=== PATIENT | female | born 1980 | race Caucasian/White ===

== ENCOUNTER 2016-12-31 17:06 | Outpatient (CLI) | payer BC, OTHER ==
--- NOTE | 2017-01-01 01:15 | Ultrasound Report ---
EXAM: ABDOMEN ULTRASOUND LIMITED, RUQ EXAM DATE: 12/31/2016 05:46 PM. CLINICAL HISTORY: LIVER FUNCTION TEST, ABNORMAL. COMPARISON: None. TECHNIQUE: Real-time scanning was performed with static images obtained. FINDINGS: Liver: Moderate diffuse fatty infiltration of the liver with diffuse hyperechogenicity. 17.2 cm. Main portal vein flow: Hepatopetal. Gallbladder: One large shadowing mobile gallstone, measures 2.4 cm. No gallbladder wall thickening. T he gallbladder wall measures 2.3 mm. Negative sonographic Harrington's sign. No pericholecystic fluid. Biliary System: The common duct measures 2.6 mm. No intrahepatic or extrahepatic ductal dilatation. Other: Right kidney measures 10.47 m in length. No hydronephrosis. IMPRESSION: 1. Cholelithiasis without evidence for acute cholecystitis. No bile duct dilatation. 2. Moderate fatty liver. [facility] Referring Provider Line: [phone] SITE ID: [id number]
== END 2016-12-31 17:07 | disposition home or self-care (01) ==
LOC: DI 17:06
PROVIDERS: ATTEND Family Medicine
DX: K80.20 Calculus of gallbladder without cholecystitis without obstruction (principal); K76.0 Fatty (change of) liver, not elsewhere classified
CPT/HCPCS: 76705

== ENCOUNTER 2017-01-11 08:21 | Outpatient (CLI) | payer BC | END 2017-01-11 08:22 | disposition home or self-care (01) | LOC: DI 08:21 | PROVIDERS: ATTEND Family Medicine | DX: Z53.9 Procedure and treatment not carried out, unspecified reason (principal) ==

== ENCOUNTER 2017-11-21 08:00 | Outpatient (CLI) | payer BC | END 2017-11-21 08:01 | disposition home or self-care (01) | LOC: LAB.WCP 08:00 | PROVIDERS: ATTEND Family Medicine | DX: L03.115 Cellulitis of right lower limb (principal) | CPT/HCPCS: 87070; 87205 ==

== ENCOUNTER 2018-01-01 12:07 | Emergency (ER) | payer BC ==
--- NOTE | 2018-01-01 13:02 | ED Physician Documentation ---
PD HPI UPPER EXT INJURY - Stated complaint Stated Complaint: R ARM INJ - Chief complaint Chief Complaint: Ext Problem - History obtained from History obtained from: Patient - History of Present Illness Location: Right, Forearm, Wrist Type of injury: Twist (she pulled heavy object yesterday and felt pain at forearm and wrist.) Timing - onset: Yesterday (has worse pain today and forearm feels painful with movement.) Timing - duration: Days (1) Timing - details: Abrupt onset, Still present Improved by: Rest Worsened by: Moving, Palpating Associated symptoms: No: Weakness, Numbness, Tingling, Discolored Similar symptoms before: Has not had sx before Review of Systems Constitutional: denies: Fever, Chills Nose: denies: Rhinorrhea / runny nose, Congestion Throat: denies: Sore throat Respiratory: denies: Cough GI: denies: Vomiting, Diarrhea Skin: denies: Rash, Lesions, Abrasion (s), Laceration (s) Musculoskeletal: reports: Extremity pain Neurologic: denies: Focal weakness, Numbness PD PAST MEDICAL HISTORY - Past Medical History Past Medical History: No - Past Surgical History Past Surgical History: No - Present Medications Home Medications: Ambulatory Orders Medication Instructions Recorded Confirmed HYDROcod/ACETAM 5/325 [[place] 5/325] 1 tab PO Q6H PRN #15 tablet 01/01/18 - Allergies Allergies/Adverse Reactions: Allergies Allergy/AdvReac Type Severity Reaction Status Date / Time No Known Drug Allergies Allergy Verified 01/01/18 12:21 - Social History Does the pt smoke?: No Smoking Status: Never smoker Does the pt drink ETOH?: Yes ETOH Use: Beer Does the pt have substance abuse?: No - Immunizations Immunizations are current?: Yes - POLST Patient has POLST: No PD ED PE NORMAL - Vitals Vital signs reviewed: Yes - General General: Alert and oriented X 3, No acute distress, Well developed/nourished - Derm Derm: Normal color, Warm and dry, No rash - Extremities Extremities: Other (right distal forearm and wrist are tender to palpate. Do not feel tight per se. Good pulses, color and cap refill. Normal sensation. No edema in hand. Not tender at elbow nor at snuffbox. ) Results - Vitals Vitals: Oxygen O2 Source Room air - Rads (name of study) forearm right Radiology: Prelim report reviewed (no fractures) PD MEDICAL DECISION MAKING - ED course Complexity details: reviewed results, considered differential (muscle strain, consider fx but xray is okay. She has pain with ROM so consider some muscular injury with tightness, but does not have other signs/sxs to correlate with compartment syndrome, but I discussed with patient watching for the "Ps" of that. She has wrist splint at home, so did not need one here. ), d/w patient - Sepsis Event Vital Signs: Oxygen O2 Source Room air Departure - Departure Disposition: Home, Self Care Clinical Impression: Sprain of right forearm Qualifiers: Encounter type: initial encounter Qualified Code(s): S63.501A - Unspecified sprain of right wrist, initial encounter Condition: Stable Record reviewed to determine appropriate education?: Yes Instructions: ED Sprain Wrist Follow-Up: Stefan Boone DO [Primary Care Provider] - Prescriptions: HYDROcod/ACETAM 5/325 [[place] 5/325] 1 tab PO Q6H PRN #15 tablet PRN Reason: Pain Comments: Use her wrist splint at home for the next several days to week. Progress use of the arm as able. Do gentle range of motion periodically to prevent stiffness. Use some ibuprofen or naproxen 2-3 times daily for the next 5-7 days. Add Tylenol or hydrocodone if needed for pain. Recheck if not improving well over the next several days and if not fully better over the next 1-2 weeks. Discharge Date/Time: 01/01/18 13:53
--- NOTE | 2018-01-01 13:20 | XRAY Preliminary Report ---
Exam: XR FOREARM RT IMPRESSION: Minimal regional soft tissue swelling. No underlying bony abnormality. No retained foreig n body. [facility] SITE ID: [id number]
--- NOTE | 2018-01-01 13:38 | XRAY Report ---
EXAM: RIGHT FOREARM RADIOGRAPHY EXAM DATE: 01/01/2018 01:06 PM. CLINICAL HISTORY: Right forearm injury. COMPARISON: None. TECHNIQUE: 2 views. FINDINGS: Bones: No fracture or bone lesions. Joints: No effusions or subluxations in the visualized wrist or elbow joints. Soft Tissues: Minimal soft tissue swelling. No retained foreign body. IMPRESSION: Minimal regional soft tissue swelling. No underlying bony abnormality. No retained foreig n body. [facility] Referring Provider Line: [phone] SITE ID: [id number]
[2018-01-01 13:54] VITALS: BP 132/94
== END 2018-01-01 13:53 | disposition home or self-care (01) ==
LOC: ED 12:07
DX: S63.501A Unspecified sprain of right wrist, initial encounter (principal); X50.9XXA Other and unspecified overexertion or strenuous movements or postures, initial encounter
CPT/HCPCS: 99283

== ENCOUNTER 2018-05-09 22:50 | Outpatient (CLI) | payer BC ==
[2018-05-09 12:51] LABS: BASOPHILS # (AUTO) 0.1 10^3/uL (0.0-0.1); BASOPHILS % (AUTO) 0.7 %; EOSINOPHILS # (AUTO) 0.2 10^3/uL (0.0-0.7); EOSINOPHILS % (AUTO) 2.5 %; HGB - HEMOGLOBIN 14.8 g/dL (12.0-16.0); LYMPHOCYTES # (AUTO) 3.6 10^3/uL (1.5-3.5); LYMPHOCYTES % (AUTO) 39.2 %; MEAN CORPUSCULAR HEMOGLOBIN 31.3 pg (27.0-31.0); MEAN CORPUSCULAR HGB CONC 34.6 g/dL (32.0-36.0); MEAN CORPUSCULAR VOLUME 90.3 fL (81.0-99.0); MEAN PLATELET VOLUME 9.9 fL (7.9-10.8); MONOCYTES # (AUTO) 0.4 10^3/uL (0.0-1.0); MONOCYTES % (AUTO) 4.6 %; NEUTROPHILS # (AUTO) 4.9 10^3/uL (1.5-6.6); PLT - PLATELET COUNT 224 10^3/uL (130-450); RED BLOOD COUNT 4.72 10^6/uL (4.20-5.40); WHITE BLOOD COUNT 9.3 x10^3/uL (4.8-10.8)
[2018-05-09 13:00] LABS: HCG,QUALITATIVE BLOOD NEGATIVE
[2018-05-09 13:24] LABS: ALBUMIN 4.6 g/dL (3.2-5.5); ALBUMIN/GLOBULIN RATIO 1.5 (1.0-2.2); ALKALINE PHOSPHATASE 62 IU/L (42-121); ALT ALANINE AMINOTRANSFERASE 44 IU/L (10-60); AST ASPARTATE AMINOTRANSFERASE 38 IU/L (10-42); BILIRUBIN,TOTAL 0.9 mg/dL (0.2-1.0); BUN - BLOOD UREA NITROGEN 12 mg/dL (6-20); CHOL/HDL RATIO 3.7 (<4.4); CHOLESTEROL 238 mg/dL; CREATININE 0.6 mg/dL (0.4-1.0); GFR - MDRD 111 (>89); HDL CHOLESTEROL 65 mg/dL; LDL CHOLESTEROL,CALCULATED 155 mg/dL; LDL/HDL RATIO 2.4 (<4.4); TOTAL PROTEIN 7.7 g/dL (6.7-8.2); VLDL CHOLESTEROL 18 mg/dL
[2018-05-09 13:31] LABS: HB2 TOTAL 15.6 g/dL; HEMOGLOBIN A1C 0.51 g/dL; HEMOGLOBIN A1C % 5.1 % (4.6-6.2)
[2018-05-09 14:21] LABS: CALCIUM 9.6 mg/dL (8.5-10.3); CARBON DIOXIDE - CO2 26 mmol/L (21-32); CHLORIDE 103 mmol/L (101-111); GLUCOSE 103 mg/dL (70-100); SODIUM 137 mmol/L (135-145)
== END 2018-05-09 22:51 | disposition home or self-care (01) ==
LOC: LAB.WCP 22:50
PROVIDERS: ATTEND Family Medicine
DX: Z00.00 Encounter for general adult medical examination without abnormal findings (principal); R94.5 Abnormal results of liver function studies; L83 Acanthosis nigricans; N92.0 Excessive and frequent menstruation with regular cycle; Z79.899 Other long term (current) drug therapy
CPT/HCPCS: 36415; 80053; 80061; 83036; 83721; 84443; 84703; 85025

== ENCOUNTER 2018-08-22 07:42 | Emergency (ER) | payer BC ==
[2018-08-22] MEDS ORDERED: SODIUM CHLORIDE 0.9% 1,000 ML IV ONE ×2 (07:47→08:43)
[2018-08-22] MEDS ORDERED: DEXAMETHASONE 10 MG/ML VIAL IVP STA (07:47)
--- NOTE | 2018-08-22 07:51 | ED Physician Documentation ---
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 Review of Systems Constitutional: reports: Fever Eyes: denies: Decreased vision Ears: denies: Ear pain Nose: reports: Rhinorrhea / runny nose, Congestion Throat: reports: Sore throat (mild) Respiratory: reports: Cough. denies: Dyspnea GI: denies: Nausea, Vomiting, Diarrhea : denies: Dysuria, Frequency Skin: denies: Rash Musculoskeletal: denies: Neck pain, Back pain, Extremity pain PD PAST MEDICAL HISTORY - Past Surgical History Past Surgical History: No - Present Medications Home Medications: Ambulatory Orders Medication Instructions Recorded Confirmed HYDROcod/ACETAM 5/325 [[place] 5/325] 1 tab PO Q6H PRN #15 tablet 01/01/18 - Allergies Allergies/Adverse Reactions: Allergies Allergy/AdvReac Type Severity Reaction Status Date / Time vancomycin AdvReac Itching Verified 08/22/18 07:51 - Social History Does the pt smoke?: No Smoking Status: Never smoker Does the pt drink ETOH?: Yes Does the pt have substance abuse?: No - Immunizations Immunizations are current?: Yes - POLST Patient has POLST: No PD ED PE NORMAL - Vitals Vital signs reviewed: Yes - General General: Alert and oriented X 3, No acute distress, Well developed/nourished - HEENT HEENT: Atraumatic, PERRL, EOMI, Ears normal, Other (dry mucous membranes ) - Neck Neck: Supple, no meningeal sign, No bony TTP - Cardiac Cardiac: No murmur, Other (tachy to 127 at rest) - Respiratory Respiratory: No respiratory distress, Clear bilaterally - Abdomen Abdomen: Soft, Non tender - Back Back: No CVA TTP, No spinal TTP - Derm Derm: Normal color, Warm and dry, No rash - Extremities Extremities: No deformity, No edema - Neuro Neuro: Alert and oriented X 3, court manager 2-12 intact, No motor deficit, No sensory deficit, Normal speech Eye Opening: Spontaneous Motor: Obeys Commands Verbal: Oriented GCS Score: 15 - Psych Psych: Normal mood, Normal affect Results - Vitals Vitals: Vital Signs - 24 hr 08/22/18 08/22/18 07:46 08:13 Temperature 37.3 C Heart Rate 168 H 102 H Respiratory 24 22 Rate Blood Pressure 150/102 H 130/93 H O2 Saturation 98 97 Oxygen O2 Source Room air - EKG (time done) 0734 Rate: Rate (enter#) (128) Rhythm: Sinus tachycardia Ischemia: Normal ST segments Computer interpretation: Disagree with computer (I am not able to see the inferior ST depression the computer is sensing. There is instead minimal ST depression in V3,4&5) - Labs Labs: Laboratory Tests 08/22/18 08/22/18 08/22/18 07:49 08:15 08:15 WBC 8.2 RBC 4.78 Hgb 14.7 Hct 42.3 MCV 88.4 MCH 30.8 MCHC 34.8 RDW 13.1 Plt Count 163 MPV 9.2 Neut # (Auto) 6.7 H Lymph # (Auto) 1.1 L [place] # (Auto) 0.3 Eos # (Auto) 0.0 Baso # (Auto) 0.0 Absolute Nucleated RBC 0.00 Nucleated RBC % 0.0 Sodium 132 L Potassium 3.3 L Chloride 101 Carbon Dioxide 22 Anion Gap 9.0 BUN 7 Creatinine 0.7 Estimated GFR (MDRD) 93 Glucose 158 H Calcium 8.4 L Total Bilirubin 0.5 AST 50 H ALT 63 H Alkaline Phosphatase 66 Total Protein 7.4 Albumin 4.0 Globulin 3.4 Albumin/Globulin Ratio 1.2 Lipase 32 Influenza A (Rapid) POSITIVE H Influenza B (Rapid) Negative Procedures - IVC sono (time) 0745 Bedside IVC sono: IVC measures (cm) (0.66), IVC collapsed c insp (cm) (complete), Significant dehydration (est 3 liter deficit) PD MEDICAL DECISION MAKING - ED course Complexity details: considered differential, d/w patient ED course: 38-year-old female with cough congestion and fever with rapid onset likely has influenza she is administered saline and Decadron. She has marked volume depletion as an explanation for her tachycardia. She is administered IV saline and decadron and she is past the time frame for effectiveness of the tamiflu. Departure - Departure Disposition: 01 Home, Self Care Clinical Impression: Influenza A, Dehydration Condition: Stable Instructions: ED Flu, ED Dehydration Follow-Up: Stefan Boone DO [Primary Care Provider] - Forms: Activity restrictions
[2018-08-22 08:27] LABS: BASOPHILS % (AUTO) 0.6 %; EOSINOPHILS % (AUTO) 0.1 %; HGB - HEMOGLOBIN 14.7 g/dL (12.0-16.0); LYMPHOCYTES # (AUTO) 1.1 10^3/uL (1.5-3.5); LYMPHOCYTES % (AUTO) 12.9 %; MEAN CORPUSCULAR HEMOGLOBIN 30.8 pg (27.0-31.0); MEAN CORPUSCULAR HGB CONC 34.8 g/dL (32.0-36.0); MEAN CORPUSCULAR VOLUME 88.4 fL (81.0-99.0); MEAN PLATELET VOLUME 9.2 fL (7.9-10.8); MONOCYTES # (AUTO) 0.3 10^3/uL (0.0-1.0); MONOCYTES % (AUTO) 4.1 %; NEUTROPHILS # (AUTO) 6.7 10^3/uL (1.5-6.6); NEUTROPHILS % (AUTO) 82.3 %; PLT - PLATELET COUNT 163 10^3/uL (130-450); RED BLOOD COUNT 4.78 10^6/uL (4.20-5.40); RED CELL DISTRIBUTION WIDTH 13.1 % (12.0-15.0); WHITE BLOOD COUNT 8.2 x10^3/uL (4.8-10.8)
[2018-08-22 08:36] LABS: ALBUMIN/GLOBULIN RATIO 1.2 (1.0-2.2); BILIRUBIN,TOTAL 0.5 mg/dL (0.2-1.0); CALCIUM 8.4 mg/dL (8.5-10.3); CREATININE 0.7 mg/dL (0.4-1.0); TOTAL PROTEIN 7.4 g/dL (6.7-8.2)
[2018-08-22] MEDS ORDERED: POTASSIUM BICARB 25 MEQ TABLET PO STA (08:43)
[2018-08-22 09:33] VITALS: BP 115/83
== END 2018-08-22 09:34 | disposition home or self-care (01) ==
LOC: ED 07:42
DX: J10.1 Influenza due to other identified influenza virus with other respiratory manifestations (principal); E86.0 Dehydration
CPT/HCPCS: 36415; 80053; 83690; 85025; 87275; 87276; 93005; 96361; 96374; 99283; A9270

== ENCOUNTER 2022-11-25 11:15 | Outpatient (CLI) | payer OTHER ==
--- NOTE | 2022-12-03 12:41 | Mammography Report ---
BILATERAL DIGITAL SCREENING MAMMOGRAM 3D/2D: 11/25/2022 CLINICAL: Routine screening. No prior exams were available for comparison. Both breasts are heterogeneously dense, which may obscure small masses (category c / 51-75% glandular tissue). No significant masses, calcifications, or other findings are seen in either breast. IMPRESSION: NEGATIVE There is no mammographic evidence of malignancy. A 1 year screening mammogram is recommended. Based on the Tyrer Cuzick model (a risk assessment model) the patients lifetime risk is 14.2% and he r 10 year risk is 2.5%. According to the ACR, ACS, and NCCN guidelines, an annual breast MRI exam danny ng with mammogram is recommended if the patients lifetime risk is 20% or greater. This exam was interpreted at Station ID: [id number]. NOTE: For mammograms, a report in lay terms will be sent to the patient. Approximately 15% of breast malignancies will not be visualized mammographically. In the management of a palpable breast mass, a negative mammogram must not discourage biopsy of a clinically suspicious lesion. Electronically Signed By: Yoni martin/zane:12/03/2022 12:15:00 letter sent: No_Letter ACR BI-RADS Category 1: Negative 3341F PARENCHYMAL PATTERN: (D) - The breast(s) demonstrate(s) heterogeneously dense fibroglandular pardereky viraj. BI-RADS CATEGORY: (1) - 1 Mammogram [id number] 1 year screening LATERALITY: (B)
== END 2022-11-25 11:16 | disposition home or self-care (01) ==
LOC: DI.N 11:15
PROVIDERS: ATTEND Family Medicine
DX: Z12.31 Encounter for screening mammogram for malignant neoplasm of breast (principal)